=== PATIENT | male | born 1970 | race Caucasian/White ===

== ENCOUNTER 2023-03-28 00:10 | Inpatient (IN) | payer OTHER ==
[~2023-03-28] VITALS: Ht 185.4 cm; Wt 79.4 kg
--- NOTE | 2023-03-28 00:28 | NUR ---
PT TO BED 1 ALS
--- NOTE | 2023-03-28 00:28 | NUR ---
PT ANNAMARIE ALS. TAKEN TO BED 1
[2023-03-28] MEDS ORDERED: NACL 0.9% 1,000 ML IV ONE (00:30)
[2023-03-28] MEDS ORDERED: INSULIN REGULAR, HUMAN 100 UNIT/ML VIAL IVP ONE (00:30)
--- NOTE | 2023-03-28 00:33 | NUR ---
PT MOTHER/IT ADMINISTRATIVE ASSISTANT LEFT CONTACT INFO:
--- NOTE | 2023-03-28 00:45 | NUR ---
53 Y/O M BIBIsabel from home presents with hyperglycemia 478 with possible dehydration pt's mother stated otp. pt's mpther stated pt is totally blind, insulin dependent, has trouble swallowing even water, has multiple 10+ lackey, 3 stents in heart, weakness, heart attack, and reacts to loud noises. pt is incontinent completely. pt is alert and awake and verbal. A&ox4, skin intact, respirations even and unlabored. pmh-stroke, heart attack, DM, totally blind allergies-unknown
[2023-03-28 00:51] VITALS: BP 114/60
[2023-03-28 01:03] LABS: BASOPHILS # (AUTO) 0.1 K/uL (0.00-0.22); BASOPHILS % (AUTO) 0.4 % (0.0-2.0); EOSINOPHILS % (AUTO) 0.2 % (0.0-4.0); HEMATOCRIT 32.1 % (36-52); HEMOGLOBIN 10.8 g/dL (12.0-18.0); LYMPHOCYTES # (AUTO) 0.8 K/uL (2.0-11.5); LYMPHOCYTES % (AUTO) 5.6 % (20.5-51.1); MEAN CORPUSCULAR HEMOGLOBIN 30 pg (27-31); MEAN CORPUSCULAR HGB CONC 34 g/dL (33-37); MEAN CORPUSCULAR VOLUME 87.4 fL (80-94); MONOCYTES # (AUTO) 0.9 K/uL (0.8-1.0); MONOCYTES % (AUTO) 6.1 % (1.7-9.3); NEUTROPHILS # (AUTO) 12.3 K/uL (1.8-7.7); NEUTROPHILS % (AUTO) 87.7 % (42.2-75.2); PLATELET COUNT (AUTO) 361 K/uL (140-450); RED BLOOD CELL COUNT(AUTO) 3.67 MIL/uL (4.20-6.10); RED CELL DISTRIBUTION WIDTH 12.9 % (11.6-13.7); WHITE BLOOD COUNT (AUTO) 14.1 K/uL (4.8-10.8)
[2023-03-28 01:04] LABS: ALBUMIN 3.4 g/dL (3.4-5.0); CARBON DIOXIDE 23.4 mmol/L (21-32); CREATININE 2.3 mg/dL (0.6-1.3); POTASSIUM 4.4 mmol/L (3.5-5.1); TOTAL BILIRUBIN 0.4 mg/dL (0.0-1.0)
--- NOTE | 2023-03-28 01:20 | NUR ---
straight cath attempted and unsuccessful due to no urine ouput. Dr. Balderrama notified
--- NOTE | 2023-03-28 02:15 | NUR ---
pt care provided with comfort lianet
--- NOTE | 2023-03-28 04:32 | NUR ---
pt's mother called in. updated mother
[2023-03-28] MEDS ORDERED: CLOP-68 PO (04:49)
[2023-03-28] MEDS ORDERED: AMLO10TA PO (04:49)
[2023-03-28] MEDS ORDERED: APIX5TAB PO (04:49)
[2023-03-28] MEDS ORDERED: CARV12.5 PO (04:49)
[2023-03-28] MEDS ORDERED: ATOR40TA40 PO (04:49)
--- NOTE | 2023-03-28 06:26 | NUR ---
pt care provided with comfort measures
[2023-03-28] MEDS ORDERED: MORPHINE SULFATE 2 MG/ML SYR IVP PRN (06:55)
[2023-03-28] MEDS ORDERED: ONDANSETRON 4 MG/2 ML VIAL IVP PRN (06:55)
[2023-03-28] MEDS ORDERED: ACETAMINOPHEN 325 MG TAB PO PRN (06:55)
[2023-03-28] MEDS ORDERED: LORazepam 2 MG/ML VIAL IVP PRN (06:55)
--- NOTE | 2023-03-28 07:23 | NUR ---
Pt report given to Vianca COPPOLA. Transfer of care at this time.
--- NOTE | 2023-03-28 07:27 | NUR ---
REPORT RECEIVED FROM ISACC COPPOLA. ASSUMED CARE AT THIS TIME
--- NOTE | 2023-03-28 08:30 | NUR ---
pt provided and offered breakfast. pt refused "not right now". tray left at bedside. call light within reach.
[2023-03-28] MEDS: NACL 0.9% 1,000 ML IV SCH ×3 (08:40→23:54)
[2023-03-28] MEDS ORDERED: DEXTROSE 50% 50 ML SYR IVP PRN (08:50)
--- NOTE | 2023-03-28 08:55 | NUR ---
PATIENT HAS BEEN SCREENED AND CATEGORIZED HIGH NUTRITION RISK. PATIENT WILL BE SEEN WITHIN 1-2 DAYS OF ADMISSION. 03/29/23-03/30/[address]
[2023-03-28] MEDS ORDERED: NON-FORMULARY ITEM (Atorvastatin Calcium 1 TAB) PO SCH (09:00)
[2023-03-28] MEDS: carvediloL 12.5 MG TAB PO SCH ×2 (09:27→20:56)
[2023-03-28] MEDS: CLOPIDOGREL 75 MG TAB PO SCH (09:27)
[2023-03-28] MEDS: amLODIPine 5 MG TAB PO SCH (09:27)
[2023-03-28] MEDS: APIXABAN 2.5 MG TAB PO SCH ×2 (09:27→21:07)
[2023-03-28] MEDS: ATORVASTATIN 20 MG TAB PO SCH (09:28)
[2023-03-28] MEDS: INSULIN LANTUS 100 UNITS/ML 10 ML VIAL SUBQ SCH (09:29)
[2023-03-28] MEDS: INSULIN LISPRO SLIDING SCALE 100 UNITS/ML VIAL SUBQ PRN (11:48)
[2023-03-28] MEDS: BLOOD GLUCOSE MONITORING 1 DEV DEV FS SCH ×3 (11:50→20:56)
[2023-03-28 12:12] VITALS: BP 110/56
--- NOTE | 2023-03-28 12:13 | NUR ---
PT ARRIVED TO [facility] [place] PT LAYING IN [facility] WITH EYES CLOSED, AAOX4. PT IS BLIND IN BOTH EYES. RESPIRATIONS EVEN AND UNLABORED ON RA SATURATING 97%. SKIN WARM AND DRY TO TOUCH. IV ON L HAND 22G INFUSING NS @125. CALL LIGHT WITHIN REACH. SIGNS POSTED. ALL SAFETY PRECAUTIONS IN PLACE. PT PARENTS AT BEDSIDE. Addendum: 03/28/23 at 1359 by Ananya Paz LVN VITAL SIGNS TAKEN. TEMP 97.6, HR 70, BP 110/56, RR18, O2 SATURATION 97%.
--- NOTE | 2023-03-28 13:01 | NUR ---
The patient's care was reviewed and supervised by [place] 04 ED, RN.
--- NOTE | 2023-03-28 19:19 | NUR ---
ENDORSE PT TO LAY OUT DRAFTER NURSE FOR CONTINUITY OF CARE. PT IS STABLE.
[2023-03-28 20:00] VITALS: BP 120/60
[2023-03-29 05:41] LABS: BASOPHILS # (AUTO) 0.1 K/uL (0.00-0.22); BASOPHILS % (AUTO) 0.5 % (0.0-2.0); EOSINOPHILS # (AUTO) 0.1 K/uL (0-0.4); EOSINOPHILS % (AUTO) 1.1 % (0.0-4.0); HEMATOCRIT 30.1 % (36-52); HEMOGLOBIN 10.3 g/dL (12.0-18.0); LYMPHOCYTES # (AUTO) 1.5 K/uL (2.0-11.5); LYMPHOCYTES % (AUTO) 14.7 % (20.5-51.1); MEAN CORPUSCULAR HEMOGLOBIN 30 pg (27-31); MEAN CORPUSCULAR HGB CONC 34 g/dL (33-37); MEAN CORPUSCULAR VOLUME 88.1 fL (80-94); MONOCYTES # (AUTO) 0.6 K/uL (0.8-1.0); MONOCYTES % (AUTO) 5.5 % (1.7-9.3); NEUTROPHILS # (AUTO) 7.9 K/uL (1.8-7.7); NEUTROPHILS % (AUTO) 78.2 % (42.2-75.2); PLATELET COUNT (AUTO) 308 K/uL (140-450); RED BLOOD CELL COUNT(AUTO) 3.42 MIL/uL (4.20-6.10); RED CELL DISTRIBUTION WIDTH 13.3 % (11.6-13.7); WHITE BLOOD COUNT (AUTO) 10.1 K/uL (4.8-10.8)
[2023-03-29] MEDS: NACL 0.9% 1,000 ML IV SCH (05:45)
[2023-03-29 06:01] LABS: ANION GAP 15.8 (8-16); CARBON DIOXIDE 22.1 mmol/L (21-32); CREATININE 1.5 mg/dL (0.6-1.3); POTASSIUM 3.9 mmol/L (3.5-5.1); TOTAL BILIRUBIN 0.4 mg/dL (0.0-1.0)
[2023-03-29] MEDS: BLOOD GLUCOSE MONITORING 1 DEV DEV FS SCH ×2 (06:06→12:00)
--- NOTE | 2023-03-29 07:15 | NUR ---
ASSUMED CONTINUITY OF CARE. INITIAL ASSESSMENT DONE. RE-ORIENTED TO EVENTS AND SURROUNDINGS. KEEP COMFORTABLE ON BED. FALL PRECAUTION APPLIED. CALL LIGHT WITHIN REACH.
[2023-03-29 08:00] VITALS: BP 131/70
[2023-03-29] MEDS ORDERED: LACTATED RINGERS 1,000 ML IV SCH (08:25)
[2023-03-29] MEDS: ATORVASTATIN 20 MG TAB PO SCH (08:41)
[2023-03-29] MEDS: amLODIPine 5 MG TAB PO SCH (08:42)
[2023-03-29] MEDS: CLOPIDOGREL 75 MG TAB PO SCH (08:42)
[2023-03-29] MEDS: APIXABAN 2.5 MG TAB PO SCH (08:43)
--- NOTE | 2023-03-29 08:58 | NUR ---
FNS CONSULT HAS BEEN RECEIVED FOR WOUND/PRESSURE ULCER ON 03/29/23. PATIENT HAS BEEN RE-SCREENED HIGH RISK AND WILL BE SEEN WITHIN 1-2 DAYS OF RECEIVING THE FNS CONSULT. JONATHAN WARREN RD
--- NOTE | 2023-03-29 09:00 | NUR ---
WOUND CARE NURSE -CASTILLO CAME AND DID SKIN CARE ON DRY BLACK SCABS ON PT. BLE.
--- NOTE | 2023-03-29 09:08 | NUR ---
BLOOD SUGAR 187. WILL GIVE LANTUS 20 UNITS SUB-Q PER MD ORDER.
[2023-03-29] MEDS: carvediloL 12.5 MG TAB PO SCH (09:10)
[2023-03-29] MEDS: INSULIN LANTUS 100 UNITS/ML 10 ML VIAL SUBQ SCH (09:13)
--- NOTE | 2023-03-29 09:16 | NUR ---
DR. MARION CAME AND SPOKE TO PTMaximo OCAMPO AT BEDSIDE REGARDING D/C INSTRUCTIONS AND TEACHING.
[2023-03-29] MEDS ORDERED: LANTUS SUBQ (09:50)
[2023-03-29] MEDS ORDERED: HUMSLIDE SUBQ (09:53)
--- NOTE | 2023-03-29 09:55 | NUR ---
WOUND CARE NURSE -CASTILLO CAME BACK AND DID WOUND CARE ON PT. SACRAL PRESSURE ULCER. PER WOUND CARE NURSE , NO NEED TO TAKE PICTURE ON PRESSURE ULCER DURING D/C.
--- NOTE | 2023-03-29 10:23 | NUR ---
WOUND CARE NOTE: WOUND ASSESSMENT DONE TO THIS 53 Y/O PT. WITH MOTHER THAO AT BED SIDE WHO IS A PRIMARY CARE PROVIDER. PER THAO PT HAS HOME HEALTH NURSE.PAST MEDICAL HISTORY: DIABETES WITH BILATERAL BLINDNESS, CVA, CORONARY ARTERY DISEASE STATUS POST CABG. PT. ADMITTED WITH COCCYX PRESSURE INJURY STAGE 3 1.5X1X0.3CM, WOUND BED PALE PINK, MOIST NO ODOR, MONI-WOUND SKIN BLANCHABLE REDNESS, SKIN INTACT. PT. ADMITTED WITH MULTIPLE DRY STABLE SCABS. WITH LARGEST TO RIGHT TOE 1X1CM DARK BROWN THIN SCABBING. PER MOTHER PT. EASILY TO TRIPPED AND EASILY TO GET SKIN DISCOLORATION OR TEAR. PT. WITH LOW STARR SCALE AT HIGH RISK, CONTINUE TO FOLLOW PRESSURE INJURY PREVENTION INTERVENTIONS. POC DISCUSSED WITH MOTHER THAO AND PRIMARY NURSE ROLANDA. RECOMMENDATIONS: -CLEANSE COCCYX WOUND WITH NS, PAT DRY, APPLY THERAHONEY GEL AND COVER WITH FOAM DRESSING QD AND PRN IF SOILING. -BLE PAINT WITH BETADINE SWAP STICKS BID AND COMMERCIAL PAINTER -POSITIONING: TURN AND REPOSITION PATIENT Q 2H OR SOONER USE PILLOWS TO KEEP BONY PROMINENCES FROM DIRECT CONTACT WITH SURFACES USE REPOSITIONING WEDGES TO PROVIDE 30-DEGREE ANGLE FOR SIDE LYING POSITIONS OFFLOADING OR FOAM DRESSING TO ALL TUBING TO PREVENT MEDICAL DEVICES RELATED PRESSURE INJURY -RE-EVALUATING AND MANAGING INCONTINENCE MONITOR SKIN CONDITION DURING POSITION CHANGE DO NOT MASSAGE REDNESS, BONY PROMINENCES FREQUENT MONI-CARE AND PROVIDE BARRIER CREAMS PRN IF SOILING MOISTURE CONTROL BY OFFER ABSORBENT PAD TO WICK AND HOLD MOISTURE KEEP SKIN DRY AND PROTECT FROM FRICTION -MANAGE FRICTION/SHEAR/MOBILITY KEEP HOB AT THE LOWEST LEVEL OF ELEVATION NO MORE THAN 30 DEGREE UNLESS OTHERWISE CONTRAINDICATED USE LIFT SHEET OR TRANSFER DEVICE TO MOVE PATIENT AND PREVENT LATERAL SHEER. PROTECT HEELS, ELBOWS BONY PROMINENCES WITH SKIN BERRIES OR FOAM DRESSING IF EXPOSED TO FRICTION OFFLOAD BILATERAL HEELS BY PLACING PILLOWS UNDER CALVES AT ALL TIMES, UNLESS OTHERWISE CONTRAINDICATED -PRESSURE REDISTRIBUTION SURFACE THERAPY JESSICA ISOFLEX MATTRESS -NUTRITION: PLEASE FOLLOW RD RECOMMENDATIONS AND OFFER NUTRITION SUPPLEMENTS IF ORDERED. PLEASE CONTACT WOUND CARE NURSE FOR ANY QUESTION AND CHANGE OF WOUND CONDITION.
[2023-03-29] MEDS: INSULIN LISPRO SLIDING SCALE 100 UNITS/ML VIAL SUBQ PRN (12:00)
--- NOTE | 2023-03-29 12:57 | NUR ---
03/29/23 RD INITIAL ASSESSMENT COMPLETED PLEASE REFER TO NUTRITION ASSESSMENT UNDER CARE ACTIVITY FOR ESTIMATED NUTRITIONAL NEEDS. 1. CONTINUE CCHO 60GM, PUREE, HONEY THICK DIET TOLERATED 2. RD RECOMMENDS PROSOURCE BID FOR WOUND WHICH WILL PROVIDE 120 CALORIES AND 30 GRAMS OF PROTEIN. 3. RD RECOMMENDS GLUCERNA BID TO HELP WITH PO INTAKE. THIS WILL PROVIDE 440 CALORIES AND 20 GRAMS OF PROTEIN. 4. RD TO FOLLOW-UP 3-5 DAYS, MODERATE RISK JONATHAN WARREN RD
[2023-03-29] MEDS ORDERED: GAUZE TP SCH (13:00)
[2023-03-29] MEDS ORDERED: THERAHONEY GEL 42.5 GM TP SCH (13:00)
--- NOTE | 2023-03-29 14:00 | NUR ---
D/C HOME VIA WHEELCHAIR ACCOMPANIED BY PT. MOTHER -THAO AND WITH ASSISTANCE FROM JOVANNY SMITH AND BIPIN SMITH. NO SOB, NOTED. IN STABLE CONDITION. INFORMED CHARGE NURSE SARAH BEE.
[2023-03-29] MEDS ORDERED: INSU100I51 SQ (14:53)
--- NOTE | 2023-03-29 16:03 | NUR ---
RECEIVED ORDER FOR PATIENT TO GET HOME HEALTH FOR WOUND CARE AND GET A HOSPITAL BED AND A JOESPH LIFT ALL PAPERWORK FAXED TO [facility] AND [facility] . PATIENT WILL RESUME CARE WITH [facility] AND START WOUND CARE WITH THEM HOME HEALTH AUTH #[id number] GIVEN BY [facility]. [facility] WILL BE TAKING CARE OF THE HOSPITAL BED AND JOESPH LIFT. DME AUTH#[id number] GIVEN BY [facility] WELL. [facility] SAID THAT THEY WILL BE CONTACTING THE PATIENTS MOTHER TO SET UP DELIVERY TIME BY THE END OF THE WEEK. Addendum: 03/30/23 at 1129 by GRAZYNA KAPLAN CM CALLED DR AIDE [facility] LOC[facility] AT [address] [place] [id number]. SPOKE WITH LYNN WHO INFORMED ME THAT MOM MADE APPOINTMENT FOR 04/03/2023 AT 4024
== END 2023-03-29 14:00 | disposition home health service (06) | DRG 469 ==
LOC: MED 00:10 → MMU 06:57 → OBSVTOIN 06:57 → MTU 11:40
PROVIDERS: ADMIT Hospitalist; ATTEND Hospitalist
DX: N17.9 Acute kidney failure, unspecified (principal); G93.41 Metabolic encephalopathy; R53.2 Functional quadriplegia; E11.65 Type 2 diabetes mellitus with hyperglycemia; L89.152 Pressure ulcer of sacral region, stage 2; I25.10 Atherosclerotic heart disease of native coronary artery without angina pectoris; Z95.1 Presence of aortocoronary bypass graft; Z79.85 Long-term (current) use of injectable non-insulin antidiabetic drugs
CPT/HCPCS: 36415; 80053; 82948; 83036; 83605; 83735; 85025; 87081; 96374; 97163-GP; 97530; 99285; J1815